=== PATIENT | female | born 1980 | race Caucasian/White ===

== ENCOUNTER 2024-02-20 08:46 | Outpatient (CLI) | payer BC ==
[2024-02-20 09:55] LABS: #Basophils 0.03 10x3/uL (0.0-0.2); #Eosinphils 0.06 10x3/uL (0.0-0.5); #Monocytes 0.56 10x3/uL (0.0-1.1); #Neutrophils 2.73 10x3/uL (1.5-8.4); %Basophils 0.5 % (0.0-2.0); %Eosinophils 1.1 % (0.0-6.0); %Lymphocytes 38.7 % (18.0-47.0); %Monocytes 10.1 % (0.0-10.0); %Neutrophils 49.4 % (40.0-75.0); Hematocrit 39.4 % (34.9-44.5); Mean Corpuscular Hemoglobin 27.4 pg (27.0-33.0); Mean Corpuscular Volume 83.1 fL (81.6-98.3); Mean Platelet Volume 10.3 fL (7.4-10.4); Platelet Count 213 10x3/uL (150-450); RBC Distribution Width 12.7 % (11.5-14.5); Red Blood Cell (RBC) Count 4.74 10x6/uL (3.90-5.03); White Blood Cell (WBC) Count 5.5 10x3/uL (3.5-10.5)
[2024-02-20 12:05] LABS: Anion Gap 13 mmol/L (10-20); BUN (Urea Nitrogen) 14 mg/dL (7.0-18.7); Calc. Creatinine Clearance 0 mL/min (70-130); Calcium 9.6 mg/dL (7.8-10.44); Carbon Dioxide 26 mmol/L (22-29); Chloride 106 mmol/L (98-107); Estimated GFR 86; Glucose 69 mg/dL (70-105); Potassium 4.2 mmol/L (3.5-5.1); Sodium 141 mmol/L (136-145)
== END 2024-02-20 08:47 | disposition home or self-care (01) ==
LOC: CSHLAB 08:46
PROVIDERS: ATTEND Surgery
DX: Z01.812 Encounter for preprocedural laboratory examination (principal); D05.12 Intraductal carcinoma in situ of left breast
CPT/HCPCS: 80048; 85025

== ENCOUNTER 2024-02-24 06:30 | Day surgery (SDC) | payer BC ==
[2024-02-20 09:16] VITALS: BMI 23.5
[2024-02-24] MEDS ORDERED: Bupivacaine/Epinephrine 0.25% 30 ML VIAL ONE (10:18)
[2024-02-24] MEDS ORDERED: PROPOFOL 20 ML ONE (10:28)
[2024-02-24] MEDS ORDERED: Lidocaine 1% PF 5 ML VIAL ONE (10:28)
[2024-02-24] MEDS ORDERED: CEFAZOLIN 2 GM VIAL ONE (11:27)
[2024-02-24] MEDS ORDERED: fentaNYL 50 mcg/mL 1 mL Vial ONE (11:28)
[2024-02-24] MEDS ORDERED: Ondansetron PF 4 MG/2 ML Vial ONE (11:48)
[2024-02-24] MEDS ORDERED: HYDROcodone/Acetaminophen 5/325 mg Tablet ONE (13:13)
== END 2024-02-24 13:30 | disposition home or self-care (01) ==
LOC: CSHSDC 06:30
PROVIDERS: ATTEND Surgery
PROC: 0HBU0ZZ Excision of Left Breast, Open Approach (ICD-10-PCS; principal; 2024-02-24)
DX: D05.12 Intraductal carcinoma in situ of left breast (principal); M06.9 Rheumatoid arthritis, unspecified; Z79.899 Other long term (current) drug therapy; Z90.49 Acquired absence of other specified parts of digestive tract; Z88.8 Allergy status to other drugs, medicaments and biological substances; Z88.5 Allergy status to narcotic agent; Z87.891 Personal history of nicotine dependence; Z98.890 Other specified postprocedural states
CPT/HCPCS: 19281; 76098; 88307; 88341; 88342; A6258; C1713; J2405; J2704; J3010